=== PATIENT | female | born 1965 | race African-American/Black ===

== ENCOUNTER 2018-09-17 06:02 | Emergency (ER) | payer MEDICARE, OTHER ==
[~2018-09-17] VITALS: Ht 165.1 cm; Wt 87.3 kg
[~2018-09-17 06:02] MED LIST: ALBU8HFA IH; AUD NEB; HYDR-309 PO; HYDR25TA PO; TRAZ-219 PO
[2018-09-17] MEDS ORDERED: ALBUTEROL SULFATE 2.5 MG/0.5 ML NEB SOLUTION NEB ONE (08:00)
[2018-09-17] MEDS ORDERED: IPRATROPIUM BROMIDE 0.5 MG/2.5 ML NEB SOLUTION NEB ONE (08:00)
[2018-09-17] MEDS ORDERED: PROPARACAINE HCL 0.5% 15 ML OPHTHALMIC SOLUTION OU ONE (08:30)
[2018-09-17 10:15] VITALS: BP 139/80
[2018-09-17] MEDS ORDERED: HYDROCODONE/ACETAMINOPHEN 5-325 MG TABLET PO ONE (10:15)
== END 2018-09-17 10:15 | disposition home or self-care (01) ==
LOC: EMS 06:06
DX: H10.33 Unspecified acute conjunctivitis, bilateral (principal); J06.9 Acute upper respiratory infection, unspecified; H35.52 Pigmentary retinal dystrophy; I10 Essential (primary) hypertension; Z79.899 Other long term (current) drug therapy
CPT/HCPCS: 94640